=== PATIENT | male | born 1950 | race Caucasian/White ===

== ENCOUNTER 2017-09-03 07:22 | Day surgery (SDC) | payer BC, OTHER ==
[2017-09-03] MEDS ORDERED: Sodium Chloride 0.9% 10 ML Syringe FLUSH PRN (07:30)
--- NOTE | 2017-09-03 08:40 | PCM.HPR ---
H & P Addendum review - H & P Addendum Review Date of Original H & P: 08/13/17 Date Reviewed: 09/03/17 Time Reviewed: 08:39 Patient was Examined: No Changes
[2017-09-03] MEDS: Lactated Ringers 1,000 ML IV SCH ×2 (08:44→10:47)
[2017-09-03] MEDS ORDERED: Midazolam 1 MG/ML 2 ML SDV IV ONE (08:45)
[2017-09-03] MEDS ORDERED: fentaNYL 100 MCG/2 ML SDV IV ONE (08:45)
[2017-09-03] MEDS ORDERED: Ketamine 500 mg/10 ML MDV IV ONE (08:45)
[2017-09-03] MEDS ORDERED: ceFAZolin 1 GM Vial IVPUSH ONE (08:45)
[2017-09-03] MEDS ORDERED: Propofol 200 MG/20 ML SDV IV ONE (08:45)
[2017-09-03] MEDS ORDERED: Ketorolac 30 MG/ML SDV IVPUSH ONE ×2 (08:45→12:38)
[2017-09-03] MEDS ORDERED: ceFAZolin 1 GM in Sodium Chloride 0.9% 50 ML IV ONE (08:45)
[2017-09-03] MEDS ORDERED: Ondansetron 4 MG/2 ML SDV IVPUSH ONE (08:45)
[2017-09-03] MEDS ORDERED: Lidocaine 1% with EPINEPHrine 1:100,000 20 ML MDV INJECT ONE (09:28)
[2017-09-03] MEDS ORDERED: Bupivacaine 0.5% 30 ML SDV INJECT ONE (09:28)
[2017-09-03] MEDS ORDERED: ceFAZolin 1 GM Vial ONE (09:42)
--- NOTE | 2017-09-03 10:20 | PCM.OPNOTE ---
- General Post-Op/Procedure Note Date of Surgery/Procedure: 09/03/17 Operative Procedure(s): Colonoscopy with bx (to sig colon). R Ing Hernia Repair with Mesh Findings: Sig colon stricture R Indirect Ing Hernia Pre Op Diagnosis: Hematochezia. R Ing Hernia Post-Op Diagnosis: Same Anesthesia Technique: Local, MAC Primary Surgeon: Barrett Grande Anesthesia Provider: Jose Angel Arambula Pathology: colon and rectal bx Hernia sac EBL in mLs: 5 Complications: None Condition: Good
[2017-09-03] MEDS ORDERED: Acetaminophen/HYDROcodone 325-5 MG Tab PO ONE (11:04)
[2017-09-03] MEDS ORDERED: Morphine 2 MG/ML Syringe IVPUSH PRN (12:40)
[2017-09-03] MEDS ORDERED: hydrOXYzine HCl 25 MG Tab PO PRN (12:54)
--- NOTE | 2017-09-03 14:24 | OR ---
DATE OF OPERATION: 09/03/2017 SURGEON: Barrett Grande MD PREOPERATIVE DIAGNOSES: 1. Colon screening. 2. Right inguinal hernia. POSTOPERATIVE DIAGNOSES: 1. Sigmoid colon stricture. 2. Right inguinal hernia, indirect. PROCEDURE PERFORMED: 1. Colonoscopy to sigmoid colon with biopsies. 2. Right inguinal hernia repair with mesh. ANESTHESIA: Local with IV sedation. DESCRIPTION OF PROCEDURE: The patient was brought to the procedure room, where he was placed on the left side and IV sedation administered. Digital rectal exam reveals a firm pelvis without a palpable prostate gland. He has not had prior surgery. It felt that the rectum was somewhat narrowed. The colonoscope was inserted and no visible abnormalities were present. I was able to advance the scope to approximately 25 cm into the sigmoid colon at which time, I encountered a benign-appearing stricture. I could visualize a few centimeters beyond. I did not see any diverticular disease. No neoplasms were present. I did try to biopsy this area and the surface was very hard and only small fragments were able to be obtained. I questioned whether he may have some inactive chronic colitis. The scope was withdrawn and I also did biopsies from the rectum which the mucosa was also quite firm. He does have a family history of Crohn disease in his son and this will be a possibility for him. Air was removed and the scope withdrawn. The patient tolerated the procedure well. The patient was then transferred to the operating room bed. His right groin was clipped, prepped with ChloraPrep and draped sterilely. IV antibiotics had been administered prior. Surgical site had been verified by myself from the patient. A 50:50 mixture of 1% lidocaine with epinephrine and 0.25% Marcaine was infiltrated and routine hernia incision made and extended through the subcutaneous tissue. External fascia was identified and opened in line with the external ring. Ilioinguinal nerve was identified and retracted inferiorly and protected from injury. The cord and hernia were dissected off the pubic tubercle, and a Bend drain was placed around this. The hernia sac and lipoma were dissected off the cord. The cord lipoma was small and transected at its base and tied with 2-0 Vicryl. Hernia sac had no contents in it and was suture ligated at its base with 2-0 Vicryl and transected. A routine hernia repair was then performed using a large precut keyhole polypropylene mesh. This was secured to the pubic tubercle, and a few more interrupted sutures used to secured to Matt's ligament inferiorly. A transition stitch was made to the shelving edge of Poupart's ligament medial to the femoral vein. Edges of the mesh were brought together laterally, incorporating the cord and nerve and secured with 0 Prolene, such that the tip of the small finger was snugly fit into the opening. The cord was trimmed to length and tucked beneath the external fascia. After the inferior edge was finished being secured, the superior edge was secured with several interrupted 0 Prolene sutures providing a tension-free repair. The wound was thoroughly irrigated with Ancef and saline and return was clear and hemostasis was assured. The subcutaneous tissue was reapproximated with 2-0 Vicryl. Skin was closed with a running 4-0 Vicryl subcuticular suture. Benzoin and Steri-Strips were placed and sterile dressing applied. The patient tolerated the procedure well. Estimated blood loss less than 5 mL. Testicles were in the scrotum following the procedure. He returned to postanesthesia in stable condition. /[id number] SAMUEL/ADALI
== END 2017-09-03 13:39 | disposition home or self-care (01) ==
LOC: MERGE 07:22 → FB.SDS 07:22
PROVIDERS: ATTEND Surgery
DX: Z12.11 Encounter for screening for malignant neoplasm of colon (principal); K40.90 Unilateral inguinal hernia, without obstruction or gangrene, not specified as recurrent; F17.210 Nicotine dependence, cigarettes, uncomplicated; K63.5 Polyp of colon
CPT/HCPCS: 45380; 49505; 88304; 88305; A9270; C1781; J0690; J1885; J2250; J2405; J2704; J3010; J7120